=== PATIENT | female | born 1960 | race Caucasian/White ===

== ENCOUNTER 2018-12-10 09:47 | Day surgery (SDC) | payer MEDICARE, BC ==
[~2018-12-10 09:47] MED LIST: Lactated Ringers 1,000 ML IV ONE
[2018-12-10] MEDS ORDERED: Ketamine HCl 50 MG/ML IJ ONE (09:48)
[2018-12-10] MEDS ORDERED: Xylocaine 1% Vial 30 ML PF IJ ONE (09:48)
[2018-12-10] MEDS ORDERED: Depo-Medrol 40 MG/ML IM ONE (09:48)
[2018-12-10] MEDS ORDERED: DIPRIVAN 200 MG/20 ML IV ONE (09:48)
--- NOTE | 2018-12-10 13:16 | XRAY ---
Indication: Bilateral L3-S1 SAMREEN. Intraoperative fluoroscopy was provided for 16 seconds. Single digital spot image submitted for interpretation demonstrates posterior spinal needle tips projecting over the expected course of the left/right L3-L5 and right S1 nerve roots. Left S1 nerve root not included in the [id number]. Correlate with intraoperative findings/report.
--- NOTE | 2018-12-10 13:19 | XRAY ---
16 seconds fluoroscopy time in surgery for bilateral L3-S1 SAMREEN.
== END 2018-12-10 12:27 | disposition home or self-care (01) ==
LOC: SDC-PAIN 09:47
PROVIDERS: ATTEND Psychiatry & Neurology Pain Medicine
DX: M47.816 Spondylosis without myelopathy or radiculopathy, lumbar region (principal); I10 Essential (primary) hypertension; J45.909 Unspecified asthma, uncomplicated; Z79.899 Other long term (current) drug therapy
CPT/HCPCS: 64493; 64494; 64495; 72020; 77002; J1030; J2001; J2704

== ENCOUNTER 2019-01-14 11:31 | Day surgery (SDC) | payer BC, MEDICARE ==
[2019-01-14] MEDS ORDERED: Depo-Medrol 40 MG/ML IM ONE (11:32)
[2019-01-14] MEDS ORDERED: DIPRIVAN 200 MG/20 ML IV ONE (11:32)
[2019-01-14] MEDS ORDERED: Sodium Chloride 0.9(Preservative Free) 10 ML IJ ONE (11:32)
--- NOTE | 2019-01-14 13:37 | XRAY ---
Indication: Bilateral L4-S1 SAMREEN. Intraoperative fluoroscopy was provided for 34 seconds. 4 digital spot images submitted for interpretation demonstrates posterior needle tips along the expected course of the left and right L4-L5 nerve roots. Small amount of contrast injected for needle tip placement. Correlate with intraoperative findings/report.
--- NOTE | 2019-01-14 13:39 | XRAY ---
34 seconds fluoroscopy time in surgery for bilateral L4-S1 SAMREEN.
[2019-01-14] MEDS ORDERED: Lactated Ringers 1,000 ML IV ONE (18:04)
== END 2019-01-14 12:52 | disposition home or self-care (01) ==
LOC: SDC-PAIN 11:31
PROVIDERS: ATTEND Psychiatry & Neurology Pain Medicine
DX: M54.16 Radiculopathy, lumbar region (principal); Z79.899 Other long term (current) drug therapy; I10 Essential (primary) hypertension; M19.90 Unspecified osteoarthritis, unspecified site; K21.9 Gastro-esophageal reflux disease without esophagitis; J45.909 Unspecified asthma, uncomplicated
CPT/HCPCS: 64483; 64484; 72020; 77003; J1030; J2704; Q9966

== ENCOUNTER 2019-02-25 11:33 | Day surgery (SDC) | payer MEDICARE ==
[2019-02-25] MEDS ORDERED: Depo-Medrol 40 MG/ML IM ONE (11:34)
[2019-02-25] MEDS ORDERED: Marcaine 0.5% SDV 10 ML IJ ONE (11:34)
[2019-02-25] MEDS ORDERED: DIPRIVAN 200 MG/20 ML IV ONE (11:34)
[2019-02-25] MEDS ORDERED: Lactated Ringers 1,000 ML IV ONE (12:45)
--- NOTE | 2019-02-25 14:13 | XRAY ---
Indication: Bilateral SI joint injection. Intraoperative fluoroscopy was provided for 14 seconds. 4 digital spot images submitted for interpretation demonstrates posterior needle tips projecting over the inferior left and right SI joints. Correlate with intraoperative findings/report.
--- NOTE | 2019-02-25 14:15 | XRAY ---
14 seconds of fluoroscopy was used in surgery for bilateral SI joint injection.
== END 2019-02-25 13:07 | disposition home or self-care (01) ==
LOC: SDC-PAIN 11:33
PROVIDERS: ATTEND Psychiatry & Neurology Pain Medicine
DX: M46.1 Sacroiliitis, not elsewhere classified (principal); I10 Essential (primary) hypertension; M19.90 Unspecified osteoarthritis, unspecified site; K21.9 Gastro-esophageal reflux disease without esophagitis; J45.909 Unspecified asthma, uncomplicated; G47.30 Sleep apnea, unspecified; F32.9 Major depressive disorder, single episode, unspecified
CPT/HCPCS: 72202; 77002; G0260; 27096; J1030; J2704

== ENCOUNTER 2019-05-20 13:05 | Day surgery (SDC) | payer MEDICARE ==
[2019-05-20] MEDS ORDERED: Depo-Medrol 40 MG/ML IM ONE (13:06)
[2019-05-20] MEDS ORDERED: Sodium Chloride 0.9(Preservative Free) 10 ML IJ ONE (13:06)
[2019-05-20] MEDS ORDERED: Ketamine HCl 50 MG/ML ONE (13:37)
[2019-05-20] MEDS ORDERED: DIPRIVAN 200 MG/20 ML IV ONE ×2 (13:37→13:40)
[2019-05-20] MEDS ORDERED: Lactated Ringers 1,000 ML IV ONE (13:47)
--- NOTE | 2019-05-20 14:45 | XRAY ---
Indication: Bilateral L4-S1 SAMREEN. Intraoperative fluoroscopy was provided for 35 seconds. 4 digital spot images submitted for interpretation demonstrates posterior needle tips projecting over the expected course of the left and right L4-L5 nerve roots. Small amount of contrast injected for needle tip placement. Correlate with intraoperative findings/report.
--- NOTE | 2019-05-20 16:21 | XRAY ---
35 seconds fluoroscopy time in surgery for bilateral L4-S1 SAMREEN.
== END 2019-05-20 14:07 | disposition home or self-care (01) ==
LOC: SDC-PAIN 13:05
PROVIDERS: ATTEND Psychiatry & Neurology Pain Medicine
DX: M54.16 Radiculopathy, lumbar region (principal); K21.9 Gastro-esophageal reflux disease without esophagitis; J45.909 Unspecified asthma, uncomplicated; G47.30 Sleep apnea, unspecified; I10 Essential (primary) hypertension; Z79.899 Other long term (current) drug therapy
CPT/HCPCS: 64483; 64484; 72100; 77003; J1030; J2704; Q9966

== ENCOUNTER 2019-07-08 13:09 | Day surgery (SDC) | payer MEDICARE ==
[2019-07-08] MEDS ORDERED: Sodium Chloride 0.9(Preservative Free) 10 ML IJ ONE (13:10)
[2019-07-08] MEDS ORDERED: Depo-Medrol 40 MG/ML IM ONE (13:10)
[2019-07-08] MEDS ORDERED: Xylocaine 1% Vial 30 ML PF IJ ONE (13:10)
[2019-07-08] MEDS ORDERED: Lactated Ringers 1,000 ML IV ONE (13:59)
[2019-07-08] MEDS ORDERED: DIPRIVAN 200 MG/20 ML IV ONE (14:12)
[2019-07-08] MEDS ORDERED: Ketamine HCl 50 MG/ML ONE (14:13)
--- NOTE | 2019-07-09 07:02 | XRAY ---
Indication: Lumbar SAMREEN. Intraoperative fluoroscopy was provided for 9 seconds. The lateral digital spot image reveals the posterior spinal needle tip to be projected over the posterior margin of the L5-S1 spinal canal. Some contrast has been injected for needle tip placement. Correlate with intraoperative findings/report.
== END 2019-07-08 14:37 | disposition home or self-care (01) ==
LOC: SDC-PAIN 13:09
PROVIDERS: ATTEND Psychiatry & Neurology Pain Medicine
DX: M54.16 Radiculopathy, lumbar region (principal); I10 Essential (primary) hypertension; J45.909 Unspecified asthma, uncomplicated; K21.9 Gastro-esophageal reflux disease without esophagitis; G47.30 Sleep apnea, unspecified; Z79.899 Other long term (current) drug therapy
CPT/HCPCS: 62323; 72100; 77003; J1030; J2001; J2704; Q9966

== ENCOUNTER 2019-11-25 10:49 | Day surgery (SDC) | payer MEDICARE ==
[2019-11-25] MEDS ORDERED: Marcaine 0.5% SDV 10 ML IJ ONE (10:50)
[2019-11-25] MEDS ORDERED: Depo-Medrol 40 MG/ML IM ONE (10:50)
[2019-11-25] MEDS ORDERED: DIPRIVAN 200 MG/20 ML IV ONE (12:13)
[2019-11-25] MEDS ORDERED: Ketamine HCl 50 MG/ML ONE (12:13)
--- NOTE | 2019-11-25 13:30 | XRAY ---
Indication: Bursitis. Comparison: None 2 views of the right hip demonstrates old superior/inferior pubic ramus fractures. Contrast inferior to the inferior pubic ramus from pain injection performed earlier today. No other bony, articular, or soft tissue abnormalities.
--- NOTE | 2019-11-25 14:13 | XRAY ---
Indication: Bilateral ischial bursa injection. Intraoperative fluoroscopy was provided for 36 seconds. 3 digital spot images submitted for interpretation demonstrates posterior needle tips projecting inferior to the left and right inferior pubic rami. Small amount of contrast injected for both needle tip placement. Correlate with intraoperative findings/report. Incidental old right superior/inferior pubic bone fractures.
--- NOTE | 2019-11-25 14:31 | XRAY ---
36 seconds fluoroscopy time in surgery for bilateral ischial bursa injections.
[2019-11-25] MEDS ORDERED: Lactated Ringers 1,000 ML IV ONE (14:52)
== END 2019-11-25 12:40 | disposition home or self-care (01) ==
LOC: SDC-PAIN 10:49
PROVIDERS: ATTEND Psychiatry & Neurology Pain Medicine
DX: M70.72 Other bursitis of hip, left hip (principal); M70.71 Other bursitis of hip, right hip; I10 Essential (primary) hypertension; J45.909 Unspecified asthma, uncomplicated; G47.30 Sleep apnea, unspecified; Z79.899 Other long term (current) drug therapy
CPT/HCPCS: 20610; 72170; 73502; 77002; J1030; J2704; Q9966

== ENCOUNTER 2020-03-09 09:27 | Day surgery (SDC) | payer MEDICARE ==
[2020-03-09] MEDS ORDERED: Marcaine 0.5% SDV 10 ML IM ONE (09:28)
[2020-03-09] MEDS ORDERED: Depo-Medrol 40 MG/ML IM ONE (09:28)
[2020-03-09] MEDS ORDERED: DIPRIVAN 200 MG/20 ML IV ONE (10:36)
[2020-03-09] MEDS ORDERED: Ketamine HCl 50 MG/ML ONE (10:36)
--- NOTE | 2020-03-09 12:16 | XRAY ---
Indication: Left knee injection. Intraoperative fluoroscopy was provided for 15 seconds. Single digital spot image submitted for interpretation demonstrates needle tip projecting over the left femur intercondylar notch. Small amount of contrast injected for needle tip placement. Correlate with intraoperative findings/report.
--- NOTE | 2020-03-09 12:20 | XRAY ---
15 seconds fluoroscopy time in surgery for left knee intra-articular injection.
[2020-03-09] MEDS ORDERED: Lactated Ringers 1,000 ML IV ONE (14:45)
== END 2020-03-09 10:58 | disposition home or self-care (01) ==
LOC: SDC-PAIN 09:27
PROVIDERS: ATTEND Psychiatry & Neurology Pain Medicine
DX: M17.12 Unilateral primary osteoarthritis, left knee (principal); I10 Essential (primary) hypertension; G47.30 Sleep apnea, unspecified; J45.909 Unspecified asthma, uncomplicated; K21.9 Gastro-esophageal reflux disease without esophagitis; Z79.899 Other long term (current) drug therapy
CPT/HCPCS: 20610; 73560; 77002; J1030; J2704; Q9966

== ENCOUNTER 2020-03-23 09:11 | Day surgery (SDC) | payer MEDICARE ==
[2020-03-23] MEDS ORDERED: Xylocaine-Mpf 2% 5 Ml Vial IJ ONE (09:12)
[2020-03-23] MEDS ORDERED: Depo-Medrol 40 MG/ML IM ONE (09:12)
[2020-03-23] MEDS ORDERED: Ketamine HCl 50 MG/ML ONE (10:37)
[2020-03-23] MEDS ORDERED: DIPRIVAN 200 MG/20 ML IV ONE (10:37)
[2020-03-23] MEDS ORDERED: Lactated Ringers 1,000 ML IV ONE (12:50)
--- NOTE | 2020-03-23 14:39 | XRAY ---
9 seconds fluoroscopy time in surgery for bilateral L4-S1 MBB.
--- NOTE | 2020-03-26 21:25 | XRAY ---
Indication: Bilateral L4-S1 MBB. Intraoperative fluoroscopy was provided for 9 seconds. A digital spot image submitted for interpretation demonstrates posterior spinal needle tips projected over the expected course of the left and right L4-S1 nerve roots. Correlate with intraoperative findings/report.
== END 2020-03-23 11:07 | disposition home or self-care (01) ==
LOC: SDC-PAIN 09:11
PROVIDERS: ATTEND Psychiatry & Neurology Pain Medicine
DX: M47.816 Spondylosis without myelopathy or radiculopathy, lumbar region (principal); I10 Essential (primary) hypertension; J45.909 Unspecified asthma, uncomplicated; K21.9 Gastro-esophageal reflux disease without esophagitis; Z79.899 Other long term (current) drug therapy
CPT/HCPCS: 64493; 64494; 72020; 77002; J1030; J2704

== ENCOUNTER 2020-04-13 13:00 | Day surgery (SDC) | payer MEDICARE ==
[~2020-04-13 13:00] MED LIST changes: +DIPRIVAN 200 MG/20 ML IV ONE; +Ketamine HCl 50 MG/ML ONE; -Lactated Ringers 1,000 ML IV ONE
[2020-04-13] MEDS ORDERED: Marcaine 0.5% SDV 10 ML IJ ONE (13:01)
--- NOTE | 2020-04-13 16:27 | XRAY ---
Indication: Left knee genicular nerve block. Intraoperative fluoroscopy was provided for 9 seconds. 2 digital spot images submitted for interpretation demonstrates anterior needle tips projecting medial/lateral supracondylar and medial tibial plateau of the left knee. Correlate with intraoperative findings/report.
[2020-04-13] MEDS ORDERED: Lactated Ringers 1,000 ML IV ONE (16:38)
--- NOTE | 2020-04-13 16:48 | XRAY ---
9 seconds fluoroscopy time in surgery for left genicular nerve block.
== END 2020-04-13 14:50 | disposition home or self-care (01) ==
LOC: SDC-PAIN 13:00
PROVIDERS: ATTEND Psychiatry & Neurology Pain Medicine
DX: M17.12 Unilateral primary osteoarthritis, left knee (principal); I10 Essential (primary) hypertension; J45.909 Unspecified asthma, uncomplicated; G47.30 Sleep apnea, unspecified; K21.9 Gastro-esophageal reflux disease without esophagitis; Z79.899 Other long term (current) drug therapy
CPT/HCPCS: 64454; 73560; 77002; J2704

== ENCOUNTER 2020-08-31 11:58 | Day surgery (SDC) | payer MEDICARE ==
[2020-08-31] MEDS ORDERED: Depo-Medrol 40 MG/ML IM ONE (11:59)
[2020-08-31] MEDS ORDERED: BUPIVACAINE 0.5% VIAL IJ ONE (11:59)
[2020-08-31] MEDS ORDERED: DIPRIVAN 200 MG/20 ML IV ONE (13:36)
[2020-08-31] MEDS ORDERED: Ketamine HCl 50 MG/ML ONE (13:36)
--- NOTE | 2020-08-31 15:04 | XRAY ---
Indication: Bilateral L4-S1 MBB. Intraoperative fluoroscopy was provided 15 seconds. Single digital spot image submitted for interpretation demonstrates posterior needle tips projecting over the expected left and right L4-S1 nerve roots. Correlate with intraoperative findings/report.
--- NOTE | 2020-08-31 15:06 | XRAY ---
15 seconds of fluoroscopy was used in surgery for a bilateral L4-L5 and L5-S1 MBB.
[2020-08-31] MEDS ORDERED: Lactated Ringers 1,000 ML IV ONE (15:44)
== END 2020-08-31 14:02 | disposition home or self-care (01) ==
LOC: SDC-PAIN 11:58
PROVIDERS: ATTEND Psychiatry & Neurology Pain Medicine
DX: M47.816 Spondylosis without myelopathy or radiculopathy, lumbar region (principal); E11.9 Type 2 diabetes mellitus without complications; I10 Essential (primary) hypertension; K21.9 Gastro-esophageal reflux disease without esophagitis; G47.30 Sleep apnea, unspecified; J45.909 Unspecified asthma, uncomplicated; Z79.899 Other long term (current) drug therapy
CPT/HCPCS: 64493; 64494; 72020; 77002; 82947; 82962; J1030; J2704

== ENCOUNTER 2020-11-09 12:42 | Day surgery (SDC) | payer MEDICARE ==
[2020-11-09] MEDS ORDERED: BUPIVACAINE 0.5% VIAL IJ ONE (12:43)
[2020-11-09] MEDS ORDERED: Xylocaine 1% Vial 30 ML PF IJ ONE (12:43)
[2020-11-09] MEDS ORDERED: Depo-Medrol 40 MG/ML IM ONE (12:43)
[2020-11-09] MEDS ORDERED: DIPRIVAN 200 MG/20 ML IV ONE ×2 (14:07→14:19)
[2020-11-09] MEDS ORDERED: Ketamine HCl 50 MG/ML ONE (14:07)
[2020-11-09] MEDS ORDERED: Lactated Ringers 1,000 ML IV ONE (15:56)
--- NOTE | 2020-11-09 16:40 | XRAY ---
Indication: Right L4-S1 RFA. Intraoperative fluoroscopy provided for 28 seconds. 3 digital spot images submitted for interpretation demonstrates posterior needle tips projecting over the expected right L4-S1 nerve roots. Correlate with intraoperative findings/report.
--- NOTE | 2020-11-09 16:44 | XRAY ---
28 seconds of fluoroscopy was used in surgery for a right L4-L5 and L5-S1 RFA.
== END 2020-11-09 14:40 | disposition home or self-care (01) ==
LOC: SDC-PAIN 12:42
PROVIDERS: ATTEND Psychiatry & Neurology Pain Medicine
DX: M47.816 Spondylosis without myelopathy or radiculopathy, lumbar region (principal); E11.9 Type 2 diabetes mellitus without complications; I10 Essential (primary) hypertension; J45.909 Unspecified asthma, uncomplicated; G47.30 Sleep apnea, unspecified; K21.9 Gastro-esophageal reflux disease without esophagitis; Z79.899 Other long term (current) drug therapy
CPT/HCPCS: 64635; 64636; 72100; 77002; 82947; J1030; J2001; J2704

== ENCOUNTER 2020-12-07 09:10 | Day surgery (SDC) | payer MEDICARE ==
[2020-12-07] MEDS ORDERED: BUPIVACAINE 0.5% VIAL IJ ONE (09:11)
[2020-12-07] MEDS ORDERED: Xylocaine 1% Vial 30 ML PF IJ ONE (09:11)
[2020-12-07] MEDS ORDERED: Depo-Medrol 40 MG/ML IM ONE (09:11)
[2020-12-07] MEDS ORDERED: Ketamine HCl 50 MG/ML ONE (11:06)
[2020-12-07] MEDS ORDERED: DIPRIVAN 200 MG/20 ML IV ONE (11:06)
--- NOTE | 2020-12-07 12:47 | XRAY ---
Indication: Left L4-S1 RFA Intraoperative fluoroscopy provided for 18 seconds. 3 digital spot images submitted for interpretation demonstrates posterior needle tips projecting over the expected left L4-S1 nerve roots. Correlate with intraoperative findings/report.
--- NOTE | 2020-12-07 12:49 | XRAY ---
18 seconds fluoroscopy time in surgery for left L4-S1 RFA.
[2020-12-07] MEDS ORDERED: Lactated Ringers 1,000 ML IV ONE (16:33)
== END 2020-12-07 11:34 | disposition home or self-care (01) ==
LOC: SDC-PAIN 09:10
PROVIDERS: ATTEND Psychiatry & Neurology Pain Medicine
DX: M47.816 Spondylosis without myelopathy or radiculopathy, lumbar region (principal); I10 Essential (primary) hypertension; K21.9 Gastro-esophageal reflux disease without esophagitis; G47.30 Sleep apnea, unspecified; E11.9 Type 2 diabetes mellitus without complications; J45.909 Unspecified asthma, uncomplicated; Z79.899 Other long term (current) drug therapy
CPT/HCPCS: 64635; 64636; 72100; 77002; 82947; J1030; J2001; J2704

== ENCOUNTER 2021-01-11 09:54 | Day surgery (SDC) | payer MEDICARE ==
[2021-01-11] MEDS ORDERED: BUPIVACAINE 0.5% VIAL IJ ONE (09:55)
[2021-01-11] MEDS ORDERED: Depo-Medrol 40 MG/ML IM ONE (09:55)
--- NOTE | 2021-01-11 12:56 | XRAY ---
Indication: Right SI joint and ischial bursa injection. Intraoperative fluoroscopy provided for 45 seconds. 4 digital spot images submitted for interpretation demonstrates posterior needle tip projecting over inferior right SI joint and second needle tip projecting inferior to right inferior pubic bone. Small amount of contrast injected for both needle tip placement. Correlate with intraoperative findings/report. Incidental displaced right inferior pubic bone fracture.
--- NOTE | 2021-01-11 13:00 | XRAY ---
45 seconds fluoroscopy time in surgery for right SI joint and right ischial bursa injections.
[2021-01-11] MEDS ORDERED: Lactated Ringers 1,000 ML IV ONE (14:34)
== END 2021-01-11 11:39 | disposition home or self-care (01) ==
LOC: SDC-PAIN 09:54
PROVIDERS: ATTEND Psychiatry & Neurology Pain Medicine
DX: M46.1 Sacroiliitis, not elsewhere classified (principal); M70.71 Other bursitis of hip, right hip; J45.909 Unspecified asthma, uncomplicated; K21.9 Gastro-esophageal reflux disease without esophagitis; I10 Essential (primary) hypertension; E11.9 Type 2 diabetes mellitus without complications; G47.30 Sleep apnea, unspecified; Z79.899 Other long term (current) drug therapy
CPT/HCPCS: 20610; 27096; 72202; 77002; 82947; G0260; J1030; J2704; Q9966

== ENCOUNTER 2021-02-15 08:08 | Day surgery (SDC) | payer MEDICARE ==
[2021-02-15] MEDS ORDERED: BUPIVACAINE 0.5% VIAL IJ ONE (08:09)
[2021-02-15] MEDS ORDERED: Depo-Medrol 40 MG/ML IM ONE (08:09)
[2021-02-15] MEDS ORDERED: DIPRIVAN 200 MG/20 ML IV ONE (09:34)
--- NOTE | 2021-02-15 10:41 | XRAY ---
19 seconds fluoroscopy time in surgery for left SI joint and left ischial bursa injections.
--- NOTE | 2021-02-15 10:41 | XRAY ---
Indication: Left SI joint and left ischial bursa injections Intraoperative fluoroscopy provided for 19 seconds. 4 digital spot image submitted for interpretation demonstrate posterior needle tip projecting over the inferior left SI joint. Second needle tip projects over the inferior left ischial tuberosity with small amount of contrast injected for needle tip placement. Correlate with intraoperative findings/report.
[2021-02-15] MEDS ORDERED: Lactated Ringers 1,000 ML IV ONE (15:59)
== END 2021-02-15 10:01 | disposition home or self-care (01) ==
LOC: SDC-PAIN 08:08
PROVIDERS: ATTEND Psychiatry & Neurology Pain Medicine
DX: M46.1 Sacroiliitis, not elsewhere classified (principal); M70.62 Trochanteric bursitis, left hip; M70.61 Trochanteric bursitis, right hip; M19.90 Unspecified osteoarthritis, unspecified site; K21.9 Gastro-esophageal reflux disease without esophagitis; J45.909 Unspecified asthma, uncomplicated; G47.30 Sleep apnea, unspecified; I10 Essential (primary) hypertension; E11.9 Type 2 diabetes mellitus without complications; Z79.899 Other long term (current) drug therapy
CPT/HCPCS: 72202; 77002; 82947; J1030; J2704

== ENCOUNTER 2021-07-12 09:40 | Day surgery (SDC) | payer MEDICARE ==
[2021-07-12] MEDS ORDERED: Depo-Medrol 80 MG/ML IM ONE (09:41)
[2021-07-12] MEDS ORDERED: BUPIVACAINE 0.5% VIAL IJ ONE (09:41)
[2021-07-12] MEDS ORDERED: DIPRIVAN 200 MG/20 ML IV ONE (11:35)
--- NOTE | 2021-07-12 13:16 | XRAY ---
Indication: Bilateral L4-S1 MBB. Intraoperative fluoroscopy was provided for 19 seconds. Single digital spot image submitted for interpretation demonstrates posterior needle tips projecting over the expected left and right L4-S1 nerve roots. Correlate with intraoperative findings/report.
--- NOTE | 2021-07-12 14:23 | XRAY ---
19 seconds of fluoroscopy was used in surgery for a bilateral L4-S1 MBB.
[2021-07-12] MEDS ORDERED: Lactated Ringers 1,000 ML IV ONE (17:26)
== END 2021-07-12 12:05 | disposition home or self-care (01) ==
LOC: SDC-PAIN 09:40
PROVIDERS: ATTEND Psychiatry & Neurology Pain Medicine
DX: M47.812 Spondylosis without myelopathy or radiculopathy, cervical region (principal); E11.9 Type 2 diabetes mellitus without complications; Z79.899 Other long term (current) drug therapy
CPT/HCPCS: 64493; 64494; 72020; 77002; 82947; J1040; J2704

== ENCOUNTER 2021-08-02 09:14 | Day surgery (SDC) | payer MEDICARE ==
[2021-08-02] MEDS ORDERED: BUPIVACAINE 0.5% VIAL IJ ONE (09:15)
[2021-08-02] MEDS ORDERED: Xylocaine 1% Vial 30 ML PF IJ ONE (09:15)
[2021-08-02] MEDS ORDERED: Depo-Medrol 40 MG/ML IM ONE (09:15)
[2021-08-02] MEDS ORDERED: DIPRIVAN 200 MG/20 ML IV ONE (11:04)
--- NOTE | 2021-08-02 13:09 | XRAY ---
Indication: Right L4-S1 RFA. Intraoperative fluoroscopy provided for 35 seconds. 3 digital spot image submitted for interpretation demonstrates posterior needle tips projecting over the expected right L4-S1 nerve roots. Correlate with intraoperative findings/report.
--- NOTE | 2021-08-02 13:13 | XRAY ---
35 seconds of fluoroscopy was used in surgery for a right L4-S1 RFA.
[2021-08-02] MEDS ORDERED: Lactated Ringers 1,000 ML IV ONE (16:26)
== END 2021-08-02 11:35 | disposition home or self-care (01) ==
LOC: SDC-PAIN 09:14
PROVIDERS: ATTEND Psychiatry & Neurology Pain Medicine
DX: M47.816 Spondylosis without myelopathy or radiculopathy, lumbar region (principal); E11.9 Type 2 diabetes mellitus without complications; Z79.899 Other long term (current) drug therapy
CPT/HCPCS: 64635; 64636; 72100; 77002; 82947; J1030; J2001; J2704

== ENCOUNTER 2021-08-09 07:58 | Day surgery (SDC) | payer MEDICARE ==
[2021-08-09] MEDS ORDERED: Xylocaine 1% Vial 30 ML PF IJ ONE (07:59)
[2021-08-09] MEDS ORDERED: BUPIVACAINE 0.5% VIAL IJ ONE (07:59)
[2021-08-09] MEDS ORDERED: Depo-Medrol 40 MG/ML IM ONE (07:59)
[2021-08-09] MEDS ORDERED: DIPRIVAN 200 MG/20 ML IV ONE (08:58)
--- NOTE | 2021-08-09 10:19 | XRAY ---
Indication: Left L4-S1 RFA. Intraoperative fluoroscopy provided for 20 seconds. 3 digital spot image submitted for interpretation demonstrates posterior needle tips projecting over the expected left L4-S1 nerve roots. Correlate with intraoperative findings/report.
--- NOTE | 2021-08-09 10:23 | XRAY ---
20 seconds fluoroscopy time in surgery for left L4-S1 RFA.
[2021-08-09] MEDS ORDERED: Lactated Ringers 1,000 ML IV ONE (17:23)
== END 2021-08-09 09:25 | disposition home or self-care (01) ==
LOC: SDC-PAIN 07:58
PROVIDERS: ATTEND Psychiatry & Neurology Pain Medicine
DX: M47.816 Spondylosis without myelopathy or radiculopathy, lumbar region (principal); M19.90 Unspecified osteoarthritis, unspecified site; K21.9 Gastro-esophageal reflux disease without esophagitis; J45.909 Unspecified asthma, uncomplicated; G47.30 Sleep apnea, unspecified; I10 Essential (primary) hypertension; E11.9 Type 2 diabetes mellitus without complications; Z79.899 Other long term (current) drug therapy
CPT/HCPCS: 64635; 64636; 72100; 77002; 82947; J1030; J2001; J2704

== ENCOUNTER 2022-01-04 08:43 | Day surgery (SDC) | payer MEDICARE ==
[2022-01-04] MEDS ORDERED: BUPIVACAINE 0.5% VIAL IJ ONE (08:44)
[2022-01-04] MEDS ORDERED: Depo-Medrol 40 MG/ML IM ONE (08:44)
[2022-01-04] MEDS ORDERED: Xylocaine 1% Vial 30 ML PF IJ ONE (08:44)
[2022-01-04] MEDS ORDERED: Lactated Ringers 1,000 ML IV ONE (10:42)
[2022-01-04] MEDS ORDERED: DIPRIVAN 200 MG/20 ML IV ONE (10:45)
--- NOTE | 2022-01-04 13:12 | XRAY ---
Indication: Right L4-S1 RFA. Intraoperative fluoroscopy provided for 20 seconds. 3 digital spot images submitted for interpretation demonstrates posterior needle tips projecting over the expected right L4-S1 S1 nerve roots. Correlate with intraoperative findings/report.
--- NOTE | 2022-01-04 15:32 | XRAY ---
20 seconds of fluoroscopy was used in surgery for a right L4-S1 RFA.
== END 2022-01-04 11:04 | disposition home or self-care (01) ==
LOC: SDC-PAIN 08:43
PROVIDERS: ATTEND Psychiatry & Neurology Pain Medicine
DX: M47.816 Spondylosis without myelopathy or radiculopathy, lumbar region (principal); E11.9 Type 2 diabetes mellitus without complications; I10 Essential (primary) hypertension; Z79.899 Other long term (current) drug therapy
CPT/HCPCS: 64635; 64636; 72100; 77002; 82947; J1030; J2001; J2704

== ENCOUNTER 2022-01-10 08:36 | Day surgery (SDC) | payer MEDICARE ==
[2022-01-10] MEDS ORDERED: Depo-Medrol 40 MG/ML IM ONE (08:37)
[2022-01-10] MEDS ORDERED: BUPIVACAINE 0.5% VIAL IJ ONE (08:37)
[2022-01-10] MEDS ORDERED: Xylocaine 1% Vial 30 ML PF IJ ONE (08:37)
[2022-01-10] MEDS ORDERED: Lactated Ringers 1,000 ML IV ONE (10:20)
[2022-01-10] MEDS ORDERED: DIPRIVAN 200 MG/20 ML IV ONE (11:03)
--- NOTE | 2022-01-10 12:09 | XRAY ---
Indication: Left L4-S1 RFA. Intraoperative fluoroscopy provided for 35 seconds. 2 digital spot image submitted for interpretation demonstrates posterior needle tips projecting over the expected left L4-S1 nerve roots. Correlate with intraoperative findings/report.
--- NOTE | 2022-01-10 12:13 | XRAY ---
35 seconds fluoroscopy time in surgery for left L4-S1 RFA.
== END 2022-01-10 11:18 | disposition home or self-care (01) ==
LOC: SDC-PAIN 08:36
PROVIDERS: ATTEND Psychiatry & Neurology Pain Medicine
DX: M47.816 Spondylosis without myelopathy or radiculopathy, lumbar region (principal); I10 Essential (primary) hypertension; E11.9 Type 2 diabetes mellitus without complications; Z79.899 Other long term (current) drug therapy
CPT/HCPCS: 64635; 64636; 72100; 77002; 82947; J1030; J2001; J2704

== ENCOUNTER 2022-02-28 09:11 | Day surgery (SDC) | payer MEDICARE ==
[2022-02-28] MEDS ORDERED: Depo-Medrol 40 MG/ML IM ONE (09:12)
[2022-02-28] MEDS ORDERED: Marcaine Mpf 0.5% Vial 30 Ml IJ ONE (09:12)
[2022-02-28] MEDS ORDERED: DIPRIVAN 200 MG/20 ML IV ONE (10:47)
[2022-02-28] MEDS ORDERED: Lactated Ringers 1,000 ML IV ONE (10:54)
--- NOTE | 2022-02-28 16:46 | XRAY ---
29 seconds of fluoroscopy was used in surgery for a bilateral ischial bursa injection.
--- NOTE | 2022-03-01 13:30 | XRAY ---
Indication: Bilateral ischial bursa injections. Intraoperative fluoroscopy provided for 29 seconds. 2 digital spot image submitted for interpretation demonstrates posterior needle tip projecting over the left and right ischial tuberosities. Small amount of contrast injected for needle tip placement. Correlate with intraoperative findings/report.
== END 2022-02-28 11:13 | disposition home or self-care (01) ==
LOC: SDC-PAIN 09:11
PROVIDERS: ATTEND Psychiatry & Neurology Pain Medicine
DX: M70.62 Trochanteric bursitis, left hip (principal); M70.61 Trochanteric bursitis, right hip; Z79.899 Other long term (current) drug therapy
CPT/HCPCS: 20610; 72170; 77002; J1030; J2704; Q9966

== ENCOUNTER 2022-03-21 11:44 | Day surgery (SDC) | payer MEDICARE ==
[2022-03-21] MEDS ORDERED: Depo-Medrol 40 MG/ML IM ONE (11:45)
[2022-03-21] MEDS ORDERED: Sodium Chloride 0.9(Preservative Free) 10 ML IJ ONE (11:45)
[2022-03-21] MEDS ORDERED: XYLOCAINE-MPF 1% 5ML SDV IJ ONE (11:45)
[2022-03-21] MEDS ORDERED: DIPRIVAN 200 MG/20 ML IV ONE (13:20)
[2022-03-21] MEDS ORDERED: Lactated Ringers 1,000 ML IV ONE (14:15)
--- NOTE | 2022-03-21 14:32 | XRAY ---
Indication: Lumbar SAMREEN. Intraoperative fluoroscopy provided for 22 seconds. 2 digital spot image submitted for interpretation demonstrates midline posterior needle tip projecting just posterior to last lumbar segment. Small amount of contrast was injected for needle tip placement. Correlate with intraoperative findings/report.
--- NOTE | 2022-03-21 14:37 | XRAY ---
22 seconds of fluoroscopy was used in surgery for a lumbar SAMREEN.
== END 2022-03-21 13:54 | disposition home or self-care (01) ==
LOC: SDC-PAIN 11:44
PROVIDERS: ATTEND Psychiatry & Neurology Pain Medicine
DX: M54.16 Radiculopathy, lumbar region (principal); I10 Essential (primary) hypertension; E11.9 Type 2 diabetes mellitus without complications; Z79.899 Other long term (current) drug therapy
CPT/HCPCS: 62323; 72100; 77002; 82947; J1030; J2704; Q9966

== ENCOUNTER 2022-06-20 11:13 | Day surgery (SDC) | payer MEDICARE ==
[2022-06-20] MEDS ORDERED: Depo-Medrol 40 MG/ML IM ONE (11:14)
[2022-06-20] MEDS ORDERED: BUPIVACAINE 0.5% VIAL IJ ONE (11:14)
[2022-06-20] MEDS ORDERED: DIPRIVAN 200 MG/20 ML IV ONE (13:06)
[2022-06-20] MEDS ORDERED: Lactated Ringers 1,000 ML IV ONE (13:57)
--- NOTE | 2022-06-20 14:38 | XRAY ---
Indication: Right SI joint in right greater trochanter bursa injections. Intraoperative fluoroscopy provided for 20 seconds. 4 digital spot image obtained prone submitted for interpretation demonstrates posterior needle tip projecting over the right SI joint. Second needle tip lateral to right greater trochanter with small amount of contrast injected for needle tip placement. Correlate with intraoperative findings/report.
--- NOTE | 2022-06-20 14:56 | XRAY ---
20 seconds of fluoroscopy was used in surgery for a right SI joint injection and a right hip greater trochanteric bursa injection.
== END 2022-06-20 13:30 | disposition home or self-care (01) ==
LOC: SDC-PAIN 11:13
PROVIDERS: ATTEND Psychiatry & Neurology Pain Medicine
DX: M46.1 Sacroiliitis, not elsewhere classified (principal); M70.61 Trochanteric bursitis, right hip; E11.9 Type 2 diabetes mellitus without complications; Z79.899 Other long term (current) drug therapy
CPT/HCPCS: 01992; 20610; 27096; 73501; 77002; 82947; G0260; J1030; J2704; Q9966

== ENCOUNTER 2023-05-09 09:38 | Day surgery (SDC) | payer MEDICARE ==
[2023-05-09] MEDS ORDERED: LIDOCAINE HCL 1% 50 MG/5 ML VL PF IJ ONE (09:39)
[2023-05-09] MEDS ORDERED: Sodium Chloride 0.9(Preservative Free) 10 ML IJ ONE (09:39)
[2023-05-09] MEDS ORDERED: Decadron 4 MG INJ IV ONE (09:39)
[2023-05-09] MEDS ORDERED: Depo-Medrol 40 MG/ML IM ONE (09:39)
[2023-05-09] MEDS ORDERED: DIPRIVAN 200 MG/20 ML IV ONE (12:16)
--- NOTE | 2023-05-09 13:19 | XRAY ---
Indication: Lumbar SAMREEN. Intraoperative fluoroscopy provided for 11 seconds. 2 digital spot image submitted for interpretation demonstrates posterior needle tip projecting posterior to lumbosacral junction. Small amount of contrast injected for needle tip placement. Correlate with intraoperative findings/report.
--- NOTE | 2023-05-09 13:19 | XRAY ---
Indication: Bilateral piriformis injection. Intraoperative fluoroscopy provided for 30 seconds. 2 digital spot image submitted for interpretation demonstrates posterior needle tip projecting over expected left and right piriformis. Small amount of contrast injected for needle tip placement. Correlate with intraoperative findings/report.
--- NOTE | 2023-05-09 13:21 | XRAY ---
30 seconds of fluoroscopy was used in surgery for a bilateral piriformis injection.
--- NOTE | 2023-05-09 13:21 | XRAY ---
11 seconds of fluoroscopy was used in surgery for a bilateral lumbar SAMREEN.
[2023-05-09] MEDS ORDERED: Lactated Ringers 1,000 ML IV ONE (14:59)
== END 2023-05-09 12:49 | disposition home or self-care (01) ==
LOC: SDC-PAIN 09:38
PROVIDERS: ATTEND Psychiatry & Neurology Pain Medicine
DX: M54.16 Radiculopathy, lumbar region (principal); M79.18 Myalgia, other site; Z79.899 Other long term (current) drug therapy
CPT/HCPCS: 20552; 62323; 72100; 72170; 77002; 77003; J1030; J1100; J2001; J2704; Q9966

== ENCOUNTER 2024-12-09 10:16 | Day surgery (SDC) | payer MEDICARE ==
[2024-12-09] MEDS ORDERED: LIDOCAINE HCL 2% 100 MG/5 ML IJ ONE (10:17)
[2024-12-09] MEDS ORDERED: propofoL IV ONE (11:48)
--- NOTE | 2024-12-09 13:01 | XRAY ---
Indication: Bilateral L4-S1 MBB. Intraoperative fluoroscopy provided for 12 seconds. Single digital spot image submitted for interpretation demonstrates posterior needle tips projecting over expected left and right L4-S1 nerve roots. Correlate with intraoperative findings/report.
--- NOTE | 2024-12-09 14:07 | XRAY ---
12 seconds of fluoroscopy was used in surgery for a bilateral L4-S1 MBB.
== END 2024-12-09 12:15 | disposition home or self-care (01) ==
LOC: SDC-PAIN 10:16
PROVIDERS: ATTEND Psychiatry & Neurology Pain Medicine
DX: M47.816 Spondylosis without myelopathy or radiculopathy, lumbar region (principal); R73.03 Prediabetes
CPT/HCPCS: 64493; 64494; 72020; 77002; 82947; J2704

== ENCOUNTER 2025-01-20 09:57 | Day surgery (SDC) | payer MEDICARE ==
[2025-01-20] MEDS ORDERED: Depo-Medrol 40 MG/ML IM ONE (09:58)
[2025-01-20] MEDS ORDERED: BUPIVACAINE 0.5% VIAL IJ ONE (09:58)
[2025-01-20] MEDS ORDERED: HUMULIN R ONE (11:41)
[2025-01-20] MEDS ORDERED: propofoL IV ONE (12:33)
--- NOTE | 2025-01-20 13:53 | XRAY ---
12 seconds of fluoroscopy was used in surgery for a bilateral L4-S1 MBB.
== END 2025-01-20 12:56 | disposition home or self-care (01) ==
LOC: SDC-PAIN 09:57
PROVIDERS: ATTEND Psychiatry & Neurology Pain Medicine
DX: M47.816 Spondylosis without myelopathy or radiculopathy, lumbar region (principal); R73.03 Prediabetes
CPT/HCPCS: 64493; 64494; 72020; 82947; J1815; J2704

== ENCOUNTER 2025-02-03 09:48 | Day surgery (SDC) | payer MEDICARE ==
[2025-02-03] MEDS ORDERED: Sodium Chloride 0.9(Preservative Free) 10 ML IJ ONE (09:49)
[2025-02-03] MEDS ORDERED: LIDOCAINE HCL 2% 100 MG/5 ML IJ ONE (09:49)
[2025-02-03] MEDS ORDERED: propofoL IV ONE (11:37)
[2025-02-03] MEDS ORDERED: Lactated Ringers 1,000 ML IV ONE (11:58)
--- NOTE | 2025-02-03 12:53 | XRAY ---
18 seconds of fluoroscopy were used in surgery for a right L4-S1 RFA.
--- NOTE | 2025-02-03 12:53 | XRAY ---
Indication: Right L4-S1 RFA. Intraoperative fluoroscopy provided for 18 seconds. 3 digital spot image submitted for interpretation demonstrates posterior needle tips projecting over right L4-S1 nerve roots. Correlate with intraoperative findings/report.
== END 2025-02-03 12:16 | disposition home or self-care (01) ==
LOC: SDC-PAIN 09:48
PROVIDERS: ATTEND Psychiatry & Neurology Pain Medicine
DX: M47.817 Spondylosis without myelopathy or radiculopathy, lumbosacral region (principal); R73.03 Prediabetes
CPT/HCPCS: 64635; 64636; 72100; 82947; J2704

== ENCOUNTER 2025-02-04 09:57 | Day surgery (SDC) | payer MEDICARE ==
[2025-02-04] MEDS ORDERED: LIDOCAINE HCL 1% AMPUL 5 ML IJ ONE (09:58)
[2025-02-04] MEDS ORDERED: BUPIVACAINE 0.5% VIAL IJ ONE (09:58)
[2025-02-04] MEDS ORDERED: propofoL IV ONE (12:06)
[2025-02-04] MEDS ORDERED: Lactated Ringers 1,000 ML IV ONE (13:13)
--- NOTE | 2025-02-04 16:25 | XRAY ---
Indication: Left L4-S1 RFA. Intraoperative fluoroscopy provided for 20 seconds. 4 digital spot image submitted for interpretation demonstrates posterior needle tips projecting over expected left L4-S1 nerve roots. Correlate with intraoperative findings/report.
--- NOTE | 2025-02-04 16:39 | XRAY ---
20 seconds of fluoroscopy used in surgery for a left L4-S1 RFA.
== END 2025-02-04 12:46 | disposition home or self-care (01) ==
LOC: SDC-PAIN 09:57
PROVIDERS: ATTEND Psychiatry & Neurology Pain Medicine
DX: M47.817 Spondylosis without myelopathy or radiculopathy, lumbosacral region (principal); R73.03 Prediabetes
CPT/HCPCS: 64635; 64636; 72100; 82947; J2704

== ENCOUNTER 2025-08-11 10:20 | Day surgery (SDC) | payer MEDICARE, BC ==
[2025-08-11] MEDS ORDERED: Sodium Chloride 0.9(Preservative Free) 10 ML IJ ONE (10:21)
[2025-08-11] MEDS ORDERED: propofoL IV ONE (12:51)
[2025-08-11] MEDS ORDERED: Lactated Ringers 1,000 ML IV ONE (14:51)
--- NOTE | 2025-08-11 14:53 | XRAY ---
Indication: Right L4-S1 transforaminal SAMREEN. Intraoperative fluoroscopy provided for 22 seconds. 5 digital spot image submitted for interpretation demonstrates posterior needle tips projecting over expected right L4 and L5 nerve roots. Small amount of contrast injected for needle tip placement. Correlate with intraoperative findings/report.
--- NOTE | 2025-08-11 16:59 | XRAY ---
22 seconds of fluoroscopy was used in surgery for a right L4-S1 transforaminal SAMREEN.
== END 2025-08-11 13:22 | disposition home or self-care (01) ==
LOC: SDC-PAIN 10:20
PROVIDERS: ATTEND Psychiatry & Neurology Pain Medicine
DX: M54.16 Radiculopathy, lumbar region (principal); R73.03 Prediabetes